=== PATIENT | female | born 1940 | race Caucasian/White ===

== ENCOUNTER → 2016-11-28 | Outpatient (CLI) | payer MEDICARE, OTHER ==
[~2016-11-28] MED LIST: BENADRYL-DPS50 MG PO; CELEXA DPS20 MG PO; MIRALAX PACKET17 GM PO; PRIMIDONE250 MG PO; PROTONIX40 MG PO; SENOKOT S1 TAB PO; SYNTHROID DPS0.15 MG PO; TOPROL XL100 MG PO; TYLENOL DPS325 MG PO; ULTRAM DPS50 MG PO
== END | disposition home or self-care (01) ==
LOC: PTH.S 10:36
DX: Z01.818 Encounter for other preprocedural examination (principal); I10 Essential (primary) hypertension; R00.1 Bradycardia, unspecified; Z79.2 Long term (current) use of antibiotics